=== PATIENT | male | born 1980 | race Hispanic/Latino ===

== ENCOUNTER 2019-12-18 11:54 | Emergency (ER) | payer MEDICARE ==
[2019-12-18 12:05] VITALS: BP 143/86
--- NOTE | 2019-12-18 12:30 | Emergency Department Report ---
ED Abdominal Pain HPI - General Chief Complaint: Abdominal Pain Stated Complaint: ABDOMINAL PAIN Time Seen by Provider: 12/18/19 12:19 Source: patient, EMS Mode of arrival: Ambulatory Limitations: No Limitations - History of Present Illness Initial Comments: 39-year-old male with history of asthma, hypertension, presents to ED with abdominal pain x3 days. Patient reports diarrhea, nausea without vomiting. Patient states he has been having a tapeworm infection since March 2019, for which he was placed on albendazole. Patient states he has been noticing tapeworms in his stool ever since. Patient denies fever. Patient reports abdominal pain is epigastric. Patient brought stool sample with him. States there are worms in the stool, however, I do not see any evidence of tapeworms. Patient also reports he had a seizure earlier today. Reports history of seizures, however states he is not currently on any antiepileptics. MD Complaint: abdominal pain -: days(s) (3) Location: epigastric Radiation: other (diffusely) Migration to: no migration Severity: mild Quality: cramping Consistency: intermittent Improves With: nothing Worsens With: nothing Associated Symptoms: nausea, diarrhea. denies: vomiting, fever - Related Data Previous Rx's Medication Instructions Recorded Last Taken Type Dicyclomine [Bentyl] 20 mg PO QID PRN #20 tablet 12/18/19 Unknown Rx Ondansetron [Zofran Odt] 4 mg PO Q8HR PRN #20 tab.rapdis 12/18/19 Unknown Rx Allergies Allergy/AdvReac Type Severity Reaction Status Date / Time acetaminophen [From Tylenol] Allergy Vomiting Verified 12/18/19 12:04 Penicillins Allergy Rash Verified 12/18/19 12:04 ED Review of Systems ROS: Stated complaint: ABDOMINAL PAIN Other details as noted in HPI Comment: All other systems reviewed and negative Constitutional: denies: fever Gastrointestinal: abdominal pain, nausea, diarrhea. denies: vomiting ED Past Medical Hx - Past Medical History Previous Medical History?: Yes Hx Hypertension: Yes Hx Asthma: Yes - Surgical History Past Surgical History?: No - Social History Smoking Status: Never Smoker Substance Use Type: None - Medications Home Medications: Home Medications Medication Instructions Recorded Confirmed Last Taken Type Dicyclomine [Bentyl] 20 mg PO QID PRN #20 tablet 12/18/19 Unknown Rx Ondansetron [Zofran Odt] 4 mg PO Q8HR PRN #20 tab.rapdis 12/18/19 Unknown Rx ED Physical Exam - General Limitations: No Limitations General appearance: alert, in no apparent distress - Head Head exam: Present: atraumatic, normocephalic - Eye Eye exam: Present: normal appearance - ENT ENT exam: Present: mucous membranes moist - Neck Neck exam: Present: normal inspection - Respiratory Respiratory exam: Present: normal lung sounds bilaterally. Absent: respiratory distress - Cardiovascular Cardiovascular Exam: Present: regular rate, normal rhythm - GI/Abdominal GI/Abdominal exam: Present: soft. Absent: distended, tenderness - Extremities Exam Extremities exam: Present: normal inspection - Neurological Exam Neurological exam: Present: alert, oriented X3, CN II-XII intact. Absent: motor sensory deficit - Psychiatric Psychiatric exam: Present: normal affect, normal mood - Skin Skin exam: Present: warm, dry, intact, normal color ED Course Vital Signs 12/18/19 12/18/19 12:05 12:24 Temperature 98.1 F Pulse Rate 74 Respiratory 18 18 Rate Blood Pressure 143/86 [Right] O2 Sat by Pulse 97 Oximetry ED Medical Decision Making - Lab Data Result diagrams: 12/18/19 12:32 12/18/19 12:32 - Radiology Data Radiology results: report reviewed, image reviewed - Medical Decision Making Vitals normal. Labs unremarkable, no elevated eosinophils to suggest parasitic infection. Abd series also normal. Pt brought stool sample with hime. Did not appear to have any tapeworms present. He initially requested that his stool be sent for culture which I agreed to. Pt then refused to give the specimen cup to the nurse so that the nurse could send it off. Pt was given prescriptions and follow up info for GI. Return precautions given. Critical care attestation.: If time is entered above; I have spent that time in minutes in the direct care of this critically ill patient, excluding procedure time. ED Disposition Clinical Impression: Abdominal pain Disposition: DC-01 TO HOME OR SELFCARE Is pt being admited?: No Condition: Stable Instructions: Abdominal Pain (ED) Prescriptions: Dicyclomine [Bentyl] 20 mg PO QID PRN #20 tablet PRN Reason: abdominal pain Ondansetron [Zofran Odt] 4 mg PO Q8HR PRN #20 tab.rapdis PRN Reason: Vomiting Referrals: [facility] [Provider Group] - 3-5 Days [facility] [Provider Group] - 3-5 Days [facility] [Outside] - 3-5 Days Time of Disposition: 13:49
--- NOTE | 2019-12-18 13:02 | XRay Report ---
ACUTE ABDOMEN SERIES INDICATION / CLINICAL INFORMATION: abd pain. COMPARISON: None available. FINDINGS: Normal bowel gas pattern. No evidence of obstruction or pneumoperitoneum. The accompanying chest x-ra y shows no acute disease Signer Name: Iván Ball MD FACR Signed: 12/18/2019 12:57 PM Workstation Name: [id number]
[2019-12-18 13:12] LABS: Basophils % (Auto) 0.6 % (0.0-1.8); Eosinophils # (Auto) 0.2 K/mm3 (0.0-0.4); Eosinophils % (Auto) 3.9 % (0.0-4.3); Hematocrit 38.8 % (35.5-45.6); Lymphocytes % (Auto) 39.4 % (13.4-35.0); Mean Corpuscular HGB Conc 34 % (32-34); Mean Corpuscular Volume 84 fl (84-94); Monocytes # (Auto) 0.4 K/mm3 (0.0-0.8); Monocytes % (Auto) 8.1 % (0.0-7.3); Platelet Count 302 K/mm3 (140-440); Red Blood Count 4.62 M/mm3 (3.65-5.03); Red Cell Distribution Width 15.4 % (13.2-15.2)
[2019-12-18 13:30] LABS: Alanine Aminotransferase 42 units/L (7-56); Albumin 4.4 g/dL (3.9-5); BUN/Creatinine Ratio 14; Blood Urea Nitrogen 11 mg/dL (9-20); Calcium 9.4 mg/dL (8.4-10.2); Hemolysis Index 10
[2019-12-18 13:31] LABS: Bilirubin,Direct < 0.2 mg/dL (0-0.2)
== END 2019-12-18 15:00 | disposition home or self-care (01) ==
LOC: ED 11:54
DX: R10.30 Lower abdominal pain, unspecified (principal); R19.7 Diarrhea, unspecified; R11.0 Nausea; I10 Essential (primary) hypertension; J45.909 Unspecified asthma, uncomplicated; Z79.899 Other long term (current) drug therapy; Z88.0 Allergy status to penicillin; Z88.8 Allergy status to other drugs, medicaments and biological substances
CPT/HCPCS: 36415; 74022; 80048; 80076; 83690; 85025

== ENCOUNTER 2019-12-29 23:59 | Emergency (ER) | payer MEDICARE ==
--- NOTE | 2019-12-30 00:34 | Emergency Department Report ---
HPI - General Chief Complaint: Pain General Time Seen by Provider: 12/30/19 00:18 - HPI HPI: 39-year-old male presents to the emergency department via EMS from home with complaint of generalized pain that started about 2 hours prior to presentation. He says he took some ibuprofen about 1 hour prior to presentation without much improvement. While he did not mention this to me, he has been talking in triage about a tapeworm he has or had. This is the patient's third visit in the past 2 weeks. The first time he was here for this abdominal pain and tapeworm and previously was on albendazole. The second visit, 1 week ago, was for a sinus infection and the patient is currently on Levaquin. He denies any fever, shortness of breath, cough, nausea, vomiting, diarrhea. He has a past medical history of hypertension and asthma. He did not receive anything for his symptoms prior to presentation with EMS. ED Past Medical Hx - Past Medical History Hx Hypertension: Yes Hx Asthma: Yes - Surgical History Hx Appendectomy: Yes - Social History Smoking Status: Never Smoker Substance Use Type: None - Medications Home Medications: Home Medications Medication Instructions Recorded Confirmed Last Taken Type Dicyclomine [Bentyl] 20 mg PO QID PRN #20 tablet 12/18/19 Unknown Rx Ondansetron [Zofran Odt] 4 mg PO Q8HR PRN #20 tab.rapdis 12/18/19 Unknown Rx Fexofenadine HCl [Abbie Allergy] 180 mg PO DAILY #30 tablet 12/24/19 Unknown Rx Fluticasone [Flonase] 2 spray NS QDAY #1 bottle 12/24/19 Unknown Rx levoFLOXacin [Levaquin TAB] 500 mg PO QDAY #7 tablet 12/24/19 Unknown Rx Docusate Sodium [Colace] 100 mg PO BID PRN #16 capsule 12/30/19 Unknown Rx traMADoL [Ultram 50 MG tab] 50 mg PO Q6HR PRN #8 tablet 12/30/19 Unknown Rx ED Review of Systems ROS: Stated complaint: TAPE WORMS Other details as noted in HPI Comment: All other systems reviewed and negative Constitutional: denies: chills, fever Eyes: denies: eye pain, vision change ENT: denies: ear pain, throat pain Respiratory: denies: cough, shortness of breath Cardiovascular: denies: chest pain, palpitations Gastrointestinal: denies: abdominal pain, vomiting Genitourinary: denies: dysuria, discharge Musculoskeletal: arthralgia, myalgia. denies: joint swelling Skin: denies: rash, lesions Neurological: denies: numbness, paresthesias Physical Exam - Physical Exam Vital Signs: Vital Signs 12/30/19 00:09 Temperature 98.6 F Pulse Rate 74 Respiratory 18 Rate Blood Pressure 135/70 [Left] O2 Sat by Pulse 96 Oximetry Physical Exam: GENERAL: The patient is well-developed well-nourished. HENT: Normocephalic. Atraumatic. Patient has moist mucous membranes. EYES: Extraocular motions are intact. NECK: Supple. Trachea is midline. CHEST/LUNGS: Clear to auscultation. There is no respiratory distress noted. HEART/CARDIOVASCULAR: Regular. There is no tachycardia. ABDOMEN: Abdomen is soft, nontender. Patient has normal bowel sounds. SKIN: Skin is warm and dry. NEURO: The patient is awake, alert, and oriented. The patient is cooperative. The patient has no focal neurologic deficits. Normal speech. MUSCULOSKELETAL: There is no tenderness or deformity. There is no evidence of acute injury. ED Course Vital Signs 12/30/19 00:09 Temperature 98.6 F Pulse Rate 74 Respiratory 18 Rate Blood Pressure 135/70 [Left] O2 Sat by Pulse 96 Oximetry ED Medical Decision Making - Lab Data Result diagrams: 12/30/19 00:28 12/30/19 00:28 - Radiology Data Radiology results: image reviewed interpreted by me: Chest x-ray does not show any acute process. There are no pleural effusions, obvious pneumonia and there is no pneumothorax. Abdominal x-ray shows some increased stool volume and nonspecific nonobstructive bowel gas. - Medical Decision Making This patient presents to the emergency department with complaint of generalized pain. He is awake, alert, oriented and does not appear in any acute distress. The patient is seen resting comfortably throughout his ED course. He took some ibuprofen prior to coming in and is allergic to acetaminophen. Patient's labs have been unremarkable including CBC, metabolic panel, CK level, TSH, urine drug screen, blood alcohol level. Chest x-ray does not show any pneumonia, pleural effusions or pneumothorax, or any other acute process. Abdominal x-ray shows some increased stool volume and nonobstructive nonspecific bowel gas. His vital signs been stable throughout his ED course. For these reasons the patient appears safe for discharge home at this time. He has been given some Colace for the increased stool volume and a very small amount of pain medication. He is also been given referrals for primary care. Patient will return to the emergency department with any worsening of his symptoms or any acute distress. Critical Care Time: No Critical care attestation.: If time is entered above; I have spent that time in minutes in the direct care of this critically ill patient, excluding procedure time. ED Disposition Clinical Impression: Generalized pain, Increased stool volume Disposition: TO HOME OR SELFCARE Is pt being admited?: No Condition: Stable Instructions: Constipation (ED), High Fiber Diet (ED) Additional Instructions: Please follow-up with a primary care physician in the next few days. Return to the emergency department with any worsening of your symptoms or any acute distress. You have been prescribed a medication that is sedating and therefore should not be taken prior to driving, working, and responsible for children and in no way should be mixed with alcohol of any quantity. Prescriptions: Docusate Sodium [Colace] 100 mg PO BID PRN #16 capsule PRN Reason: Constipation traMADoL [Ultram 50 MG tab] 50 mg PO Q6HR PRN #8 tablet PRN Reason: Pain Referrals: [facility] [Primary Care Provider] - 2-3 Days GARY ESQUIVEL MD [Staff Physician] - 2-3 Days [facility] [Provider Group] - 2-3 Days Time of Disposition: 01:48
[2019-12-30 00:43] LABS: Basophils % (Auto) 0.4 % (0.0-1.8); Eosinophils # (Auto) 0.5 K/mm3 (0.0-0.4); Eosinophils % (Auto) 8.4 % (0.0-4.3); Hematocrit 36.9 % (35.5-45.6); Hemoglobin 12.6 gm/dl (11.8-15.2); Lymphocytes # (Auto) 2.5 K/mm3 (1.2-5.4); Mean Corpuscular HGB Conc 34 % (32-34); Mean Corpuscular Volume 83 fl (84-94); Monocytes # (Auto) 0.7 K/mm3 (0.0-0.8); Monocytes % (Auto) 10.7 % (0.0-7.3); Platelet Count 359 K/mm3 (140-440); Red Blood Count 4.46 M/mm3 (3.65-5.03)
[2019-12-30 01:02] LABS: Bilirubin,Urine NEG (Negative); Blood,Urine NEG (Negative); Color,Urine Straw (Yellow); Protein,Urine <15 mg/dL mg/dL (Negative); Urobilinogen,Urine < 2.0 mg/dL (<2.0); WBC,Urine < 1.0 /HPF (0.0-6.0)
[2019-12-30 01:10] LABS: Amphetamine Screen,Urine PRESUMPTIVE NEGATIVE; Benzodiazepines Screen,Urine PRESUMPTIVE NEGATIVE; Cannabinoid Screen,Urine PRESUMPTIVE NEGATIVE; Cocaine Screen,Urine PRESUMPTIVE NEGATIVE; Methadone Screen,Urine PRESUMPTIVE NEGATIVE; Opiate Screen,Urine PRESUMPTIVE NEGATIVE
[2019-12-30 01:23] LABS: Alanine Aminotransferase 31 units/L (7-56); Albumin 4.2 g/dL (3.9-5); BUN/Creatinine Ratio 19; Blood Urea Nitrogen 15 mg/dL (9-20); Hemolysis Index 5
[2019-12-30 01:25] LABS: Bilirubin,Direct < 0.2 mg/dL (0-0.2)
[2019-12-30 01:28] VITALS: BP 120/72
--- NOTE | 2019-12-30 01:32 | XRay Report ---
Chest and abdominal series. HISTORY: Abdominal pain. COMPARISON: Chest x-ray 12/18/2019. Chest one view: Heart size is normal. The lungs are clear. Two-view abdomen: Gas is scattered throughout the abdomen in a nonobstructive fashion. Negative for f ree air or suspicious calcification. Large amount of colonic stool. Signer Name: Bruno Mas MD Signed: 12/30/2019 1:27 AM Workstation Name: [id number]
== END 2019-12-30 02:09 | disposition home or self-care (01) ==
LOC: ED 23:59
DX: M79.18 Myalgia, other site (principal); I10 Essential (primary) hypertension; J45.909 Unspecified asthma, uncomplicated; Z79.899 Other long term (current) drug therapy; Z90.49 Acquired absence of other specified parts of digestive tract; Z88.6 Allergy status to analgesic agent; Z88.0 Allergy status to penicillin
CPT/HCPCS: 36415; 74022; 80048; 80076; 80307; 80320; 81001; 82550; 83690; 84443; 85025; G0480